=== PATIENT | female | born 1995 | race Caucasian/White ===

== ENCOUNTER 2022-03-20 10:55 | Emergency (ER) | payer MEDICAID ==
[2022-03-20 11:04] VITALS: BP 117/74; PULSE 63
[2022-03-20 11:57] LABS: CHLORIDE,CL 104 mmol/L (98-107); SODIUM,NA 141 mmol/L (136-145)
[2022-03-20 11:58] LABS: ANION GAP 13.8 mmol/L (5-15); ESTIMATED GFR 104 mL/min (>=60)
[2022-03-20] MEDS: Iopamidol 612 MG/ML 100 ML Bottle IVPUSH ONE (12:20)
[2022-03-20] MEDS: Ketorolac 30 MG/ML SDV IVPUSH ONE (13:10)
== END 2022-03-20 13:30 | disposition home or self-care (01) ==
LOC: VM.ED 10:55
DX: R10.11 Right upper quadrant pain (principal); J45.909 Unspecified asthma, uncomplicated; Z79.899 Other long term (current) drug therapy
CPT/HCPCS: 36415; 74177; 80053; 81003; 81025; 82150; 83690; 85025; 86140; 96374; 99284; 99284-25; J1885; Q9967

== ENCOUNTER 2022-09-20 00:10 | Emergency (ER) | payer MEDICAID ==
[2022-09-20] MEDS ORDERED: Sodium Chloride 0.9% 10 ML Syringe FLUSH PRN (00:20)
[2022-09-20 00:44] LABS: BASOPHILS PERCENT AUTO 0.2 % (0.2-1.2); EOSINOPHILS ABSOLUTE AUTO 0.1 x10^3/uL (0.0-0.5); HEMATOCRIT 38.9 % (33.0-47.0); HEMOGLOBIN 13.8 g/dL (12.0-16.0); IMMATURE GRAN ABSOLUTE AUTO 0.02 x10^3/uL (0.00-0.07); LYMPHOCYTES ABSOLUTE AUTO 2.4 x10^3/uL (1.0-4.8); MEAN CORPUSCULAR HEMOGLOBIN 33.1 pg (26.0-32.0); MEAN CORPUSCULAR HGB CONC 35.5 g/dL (32.0-36.0); MEAN CORPUSCULAR VOLUME 93.3 fL (78.0-93.0); MONOCYTES ABSOLUTE AUTO 0.3 x10^3/uL (0.0-0.8); MONOCYTES PERCENT AUTO 5.1 % (2.0-11.0); NEUTROPHILS ABSOLUTE AUTO 3.1 x10^3/uL (1.8-7.7); NEUTROPHILS PERCENT AUTO 52.4 % (50.0-80.0); PLATELET COUNT,PLT 232 x10^3/uL (130-400); RED BLOOD CELL COUNT 4.17 x10^6/uL (4.00-5.50); WHITE BLOOD CELL COUNT,WBC 5.9 x10^3/uL (4.0-10.0)
[2022-09-20 00:45] LABS: BILIRUBIN,URINE NEGATIVE (NEGATIVE); COLOR,URINE YELLOW (YELLOW); GLUCOSE,URINE NEGATIVE (NEGATIVE); KETONES,URINE NEGATIVE (NEGATIVE); LEUKOCYTE ESTERASE,URINE NEGATIVE (NEGATIVE); NITRITE,URINE NEGATIVE (NEGATIVE); OCCULT BLOOD,URINE MODERATE (NEGATIVE); PH,URINE 5.5 (5.0-8.0); PROTEIN,URINE TRACE mg/dL (NEGATIVE); UROBILINOGEN,URINE 0.2 EU/dL (0.2)
[2022-09-20] MEDS: Sodium Chloride 0.9% 1,000 ML IV SCH (00:45)
[2022-09-20 00:52] LABS: APPEARANCE,URINE CLOUDY (CLEAR)
[2022-09-20] MEDS: Ondansetron 4 MG/2 ML SDV IVPUSH ONE (00:52)
[2022-09-20 00:54] LABS: BACTERIA,URINE RARE /HPF (NOT SEEN); MUCUS,URINE MANY /LPF (NOT SEEN); RBC,URINE 40-50 /HPF (NOT SEEN); SQUAMOUS EPITHELIAL CELLS,UR FEW /HPF (NOT SEEN); WBC,URINE 0-5 /HPF (NOT SEEN)
[2022-09-20] MEDS: Ketorolac 15 MG/ML SDV IVPUSH ONE (00:54)
[2022-09-20] MEDS: HYDROmorphone 0.5 MG/0.5 ML Syringe IVPUSH ONE (00:56)
[2022-09-20 01:01] LABS: A/G RATIO 1.21; ALBUMIN 4.6 g/dL (3.4-5.0); ANION GAP 15.1 mmol/L (5-15); BILIRUBIN TOTAL 0.4 mg/dL (0.2-1.0); CALCIUM 9.6 mg/dL (8.5-10.1); EST CRCL DRUG DOSING (CG) 95.29 mL/min; POTASSIUM,K 4.1 mmol/L (3.5-5.1); PROTEIN TOTAL,TP 8.4 g/dL (6.4-8.2)
[2022-09-20] MEDS: HYDROmorphone 1 MG/ML Syringe IVPUSH ONE (01:35)
[2022-09-20] MEDS: Take Home: Acetaminophen/HYDROcodone 325-10 MG, 5 Tab Pack PO ONE (02:41)
[2022-09-20] MEDS: Take Home: Ondansetron 4 MG Tab.DIS, 5 Tab Pack PO ONE (02:41)
[2022-09-20] MEDS: Tamsulosin 0.4 MG Cap.ER PO ONE (02:41)
[2022-09-20 03:22] VITALS: BP 120/74; PULSE 73
== END 2022-09-20 03:02 | disposition home or self-care (01) ==
LOC: VM.ED 00:10
DX: N20.0 Calculus of kidney (principal); J45.909 Unspecified asthma, uncomplicated; Z79.899 Other long term (current) drug therapy
CPT/HCPCS: 74176; 80053; 81001; 81025; 85025; 96361; 96374; 96375; 96376; 99283; 99284-25; A9270-GY; J1170; J1885; J2405; J7030; Q0162

== ENCOUNTER 2022-12-06 03:08 | Emergency (ER) | payer MEDICAID ==
[2022-12-06] MEDS: Albuterol/Ipratropium 3.0-0.5 MG/3 ML Neb Soln NEB ONE (03:10)
[2022-12-06] MEDS: methylPREDNISolone Sodium Succinate 125 MG/2 ML SDV IM ONE (03:33)
[2022-12-06] MEDS: Take Home: Albuterol 0.083% 2.5 MG/3 ML Neb Soln, 5 Neb Pack NEB ONE (03:41)
== END 2022-12-06 03:58 | disposition home or self-care (01) ==
LOC: VM.ED 03:08
DX: J45.909 Unspecified asthma, uncomplicated (principal)
CPT/HCPCS: 96372; 99283; 99284; A9270; J2930; J7620-GY

== ENCOUNTER 2022-12-29 13:16 | Emergency (ER) | payer MEDICAID | END 2022-12-29 14:20 | disposition home or self-care (01) | LOC: VM.ED 13:16 | DX: U07.1 COVID-19 (principal) | CPT/HCPCS: 99283 ==

== ENCOUNTER 2023-02-14 11:23 | Emergency (ER) | payer MEDICAID | END 2023-02-14 12:38 | disposition home or self-care (01) | LOC: VM.ED 11:23 | DX: J45.901 Unspecified asthma with (acute) exacerbation (principal); F41.9 Anxiety disorder, unspecified; Z79.899 Other long term (current) drug therapy | CPT/HCPCS: 99284 ==

== ENCOUNTER 2023-09-21 16:17 | Emergency (ER) | payer MEDICAID ==
[2023-09-21] MEDS: LORazepam 2 MG/ML SDV SUBCUT ONE (16:32)
== END 2023-09-21 16:59 | disposition home or self-care (01) ==
LOC: VM.ED 16:17
DX: R06.4 Hyperventilation (principal); J45.909 Unspecified asthma, uncomplicated; Z79.899 Other long term (current) drug therapy
CPT/HCPCS: 96372; 99284; J2060

== ENCOUNTER 2023-11-04 09:31 | Emergency (ER) | payer OTHER, MEDICAID ==
[2023-11-04] MEDS: Ketorolac 30 MG/ML SDV IVPUSH ONE (11:53)
== END 2023-11-04 12:20 | disposition home or self-care (01) ==
LOC: VM.ED 09:31
DX: S40.011A Contusion of right shoulder, initial encounter (principal); M54.50 Low back pain, unspecified; J45.909 Unspecified asthma, uncomplicated; Z79.899 Other long term (current) drug therapy; W19.XXXA Unspecified fall, initial encounter
CPT/HCPCS: 72131; 73030-RT; 81025; 96374; 99283; 99284-25; J1885

== ENCOUNTER 2023-12-25 09:40 | Emergency (ER) | payer OTHER, MEDICAID ==
[2023-12-25] MEDS: Acetaminophen 500 MG Tab PO ONE (10:10)
== END 2023-12-25 11:11 | disposition home or self-care (01) ==
LOC: VM.ED 09:40 → SUPCPDRO 09:40 → VM.ED 11:11
DX: S09.90XA Unspecified injury of head, initial encounter (principal); J45.909 Unspecified asthma, uncomplicated; Z79.899 Other long term (current) drug therapy; W20.8XXA Other cause of strike by thrown, projected or falling object, initial encounter; Y99.0 Civilian activity done for income or pay
CPT/HCPCS: 99284; A9270